=== PATIENT | male | born 1990 | race Two or more races ===

== ENCOUNTER 2019-12-07 16:31 | Emergency (ER) | payer OTHER ==
[~2019-12-07] VITALS: Ht 177.8 cm; Wt 73.0 kg
--- NOTE | 2019-12-07 16:45 | NUR ---
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 Respirations even and unlabored on room air. Vitals stable as documented. A+Ox4, speaking in complete sentences.
[2019-12-07 17:00] VITALS: BP 129/74
--- NOTE | 2019-12-07 17:35 | Emergency Room Report ---
History of Present Illness General Chief Complaint: Upper Extremity Injury Present Illness HPI 29 YO male presents to the ED c/o 5/10 in severity localized mid right forearm pain and tenderness s/p moving/transfering a patient at work. Pt. reports pain with making twisting motion of the right arm. Pt. reports able to make a fist. He denies any other notable trauma or fall. He denies feeling a pop sensation. Pt. denies bruises, open wounds or bleeding. Pt. is right hand dominant. Pt. denies paresthesias or radiation of his pain. He took an Aleve around 11 AM which did provide him relief of his symptoms however he is concerned about when that medication wears off. No other aggravating or relieving factors at this time. 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 Patient History Past Medical History: see triage record Past Surgical History: none Pertinent Family History: none Reviewed Nursing Documentation: PMH: Agreed; PSxH: Agreed Review of Systems All Other Systems: negative except mentioned in HPI Physical Exam Vital Signs Date Time Temp Pulse Resp B/P (MAP) Pulse Ox O2 Delivery O2 Flow Rate FiO2 12/07/19 16:42 98.1 76 20 125/80 (95) 99 Room Air Sp02 EP Interpretation: reviewed, normal General Appearance: no apparent distress, alert, GCS 15, non-toxic Head: normocephalic, atraumatic Eyes: bilateral eye normal inspection, bilateral eye PERRL ENT: hearing grossly normal, normal voice Neck: full range of motion Respiratory: lungs clear, normal breath sounds, speaking full sentences Cardiovascular #1: regular rate, rhythm, no edema, normal capillary refill Cardiovascular #2: 2+ radial (R) Musculoskeletal: normal range of motion - with pain, gait/station normal, tender - Right mid forearm, no obvious bony abnormality. No bruises, no open wounds Neurologic: alert, motor strength/tone normal, oriented x3, sensory intact, responsive, speech normal Psychiatric: judgement/insight normal Skin: no rash, normal color Medical Decision Making PA Attestation Dr. Rosenbaum Is my supervising Physician whom patient management has been discussed with. Diagnostic Impression: Primary Impression: Strain of forearm, right Qualified Codes: S56.911A - Strain of unspecified muscles, fascia and tendons at forearm level, right arm, initial encounter ER Course 29 YO male presents to the ED c/o 5/ in severity localized mid right forearm pain and tenderness s/p moving/transfering a patient at work. Pt. reports pain with making twisting motion of the right arm. Pt. reports able to make a fist. He denies any other notable trauma or fall. He denies feeling a pop sensation. Pt. denies bruises, open wounds or bleeding. Pt. is right hand dominant. Pt. denies paresthesias or radiation of his pain. He took an Aleve around 11 AM which did provide him relief of his symptoms however he is concerned about when that medication wears off. No other aggravating or relieving factors at this time. Ddx considered but are not limited to Fracture, dislocation, contusion, Sprain/ Strain/Spasm, over use syndrome, nerve impingement just to name a few. Vital signs: are WNL, pt. is afebrile. H&PE are most consistent with musculoskeletal injury will perform imaging to r/ o fractures/dislocations. ORDERS: - X-ray Right forearm 2 views - negative for fx, Dislocation, or significant soft tissue injury, per preliminary read in ED, and signed by DARIA Loyola, my supervising physician has reviewed, and agrees with my interpretation. ED INTERVENTIONS: - Tylenol 650mg PO -prefabricated velcro right forearm/wrist Splint applied by orthotic and prosthetic technician. Pt. remains neurovascularly intact. -I do not identify an emergent condition at this time. With current presentation , pt. is stable for close outpatient follow up and conservative treatment. D/ w pt. to return promptly to ED with worsening or new symptoms.- Pt. verbalizes' understanding and agreement with proposed treatment plan.proposed treatment plan. DISCHARGE: At this time pt. is stable for d/c to home. Will provide printed patient care instructions, and any necessary prescriptions. Care plan and follow up instructions have been discussed with the patient prior to discharge. Other X-Ray Diagnostic Results Other X-Ray Diagnostic Results : X-Ray ordered: Right forearm # of Views/Limited Vs Complete: 2 View Indication: Pain EP Interpretation: Yes DARIA Xray: Interpretation reviewed, by supervising MD, and agrees with findings. Interpretation: no dislocation, no soft tissue swelling, no fractures Impression: No acute disease Electronically Signed by: Kaela Loyola PA-C Last Vital Signs Date Time Temp Pulse Resp B/P (MAP) Pulse Ox O2 Delivery O2 Flow Rate FiO2 12/07/19 17:00 98.4 77 20 129/74 98 Room Air Status: improved Disposition: HOME, SELF-CARE Condition: Stable Scripts Ibuprofen* (MOTRIN*) 600 Mg Tablet 600 MG ORAL THREE TIMES A DAY, #30 TAB Prov: Kaela Loyola 12/07/19 Additional Instructions: Take medications as directed. Follow up with a Primary Care Provider in 3-5 days, even if your symptoms have resolved. --Please review list of primary care clinics, if you do not already have a primary care provider Return sooner to ED if new symptoms occur, or current symptoms become worse. - Please note that this Emergency Department Report was dictated using [employer] em[employer] technology software, occasionally this can lead to erroneous entry secondary to interpretation by the dictation equipment. Kaela Loyola Dec 07, 2019 17:35
[2019-12-07] MEDS ORDERED: IBUPROFEN600 M1 ORAL (17:43)
[2019-12-07 18:15] VITALS: BP 133/71
--- NOTE | 2019-12-07 18:15 | NUR ---
ED Nurse Note: Right wrist velcro splint applied. Pt cleared by health care Provider for discharge. DC instructions/prescription were given and explained to pt and verbalized understanding of teachings. All medical deviecs such as ID band removed. Pt is AAO x4, ambulatory and left with all personal belongings.
--- NOTE | 2019-12-08 17:05 | Diagnostic Imaging Report ---
Indications: Pain Technique: Two views of the right forearm Comparison: None Findings: No acute fractures. No dislocations. The joint spaces are preserved Impression: Negative
== END 2019-12-07 18:15 | disposition home or self-care (01) ==
LOC: EMR 17:20
DX: S56.911A Strain of unspecified muscles, fascia and tendons at forearm level, right arm, initial encounter (principal); X50.1XXA Overexertion from prolonged static or awkward postures, initial encounter; Y92.9 Unspecified place or not applicable
CPT/HCPCS: 99283